=== PATIENT | female | born 1980 | race Hispanic/Latino ===

== ENCOUNTER 2024-04-25 23:00 | Emergency (ER) | payer BC, SELFPAY ==
[2024-04-25 23:06] VITALS: BP 135/72
--- NOTE | 2024-04-26 00:13 | ED.GENMED ---
History of Present Illness
<NIKITA Prescott - Last Filed: 04/26/24 02:39>
General
Chief Complaint: Musculo-Skeletal Complaint
Source: patient
Exam Limitations: none
Time Seen by Provider: 04/26/24 00:02
Nursing documentation reviewed up to this point in time: agreed with
History of Present Illness
History of Present Illness:
Patient is a 43-year-old female who presents to the ER for evaluation of neck pain. 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 She got home this morning started with
pain from her upper back area into her neck. She has taken Tylenol because she is allergic to NSAIDs and has had no relief of symptoms. She reports now she can barely move her neck left to right or up and down. She denies any fevers. She denies
any numbness tingling weakness to upper extremities
Review of Systems
<NIKITA Prescott - Last Filed: 04/26/24 02:39>
Review of Systems
Allergies reviewed?: Yes
All Other Systems: ROS reviewed and negative except as documented in HPI and ROS
Constitutional: Reports no symptoms; Denies fever, fatigue or chills
Respiratory: Reports no symptoms
Cardiac: Reports no symptoms
Musculoskeletal: Reports neck pain and back pain
Skin: Reports no symptoms
Neurological: Reports no symptoms
Psychiatric: Reports no symptoms
Phy Exam
<NIKITA Prescott - Last Filed: 04/26/24 02:39>
General Physical Exam
General Presentation: no apparent distress
General age: appears stated age
General Skin: warm and dry
General Habitus: normal
General Mental: alert
General Hydration: appears well hydrated
Neurological Exam
Neurological Exam: alert, oriented x3, no motor deficits, no sensory deficits and other (Intact sensation to bilateral upper extremities good tube coremaker strength)
Musculoskeletal Exam
Musculoskeletal Exam: other (tender throughout soft tissue muscles of neck and upper trapezius pain with range of motion)
Skin Exam
Skin Exam: normal color and warm/dry
Psychiatric Exam
Psychiatric Exam: normal mood/affect
Course
<NIKITA Prescott - Last Filed: 04/26/24 02:39>
Orders/Labs/Results
Orders:
Orders
04/26/24 00:13
Oxycodone [Roxicodone] 5 mg PO NOW STA
diazePAM [Valium Injection] 5 mg IM NOW STA
04/26/24 00:14
CT Cervical Spine W/o Iv Contr Urgent
Comment:
Reason For Exam: neck pain/injury
04/26/24 02:11
Dexamethasone Sod Phosphate [Decadron] 10 mg IV NOW STA
04/26/24 02:15
Basic Metabolic Panel Urgent
CRP [C-Reactive Protein] Urgent
Complete Blood Count/With Diff Urgent
Sed Rate [Erythrocyte Sed Rate] Urgent
04/26/24 04:00
CT Neck With Iv Contrast Urgent
Comment:
Reason For Exam: Severe posterior neck pain, sore throat, dysphagia
04/26/24 04:02
Acetaminophen 1000MG/100Ml [Ofirmev] 1,000 mg in 100 ml IV ONCE
Acetaminophen IV Indication:: ED Narcotic Naive Pt-ONCE
04/26/24 05:32
Oxycodone [Roxicodone] 5 mg PO NOW STA
Abnormal Lab Results
04/26/24
02:15
WBC 11.9 H 10^3/uL
(4.8-10.8)
Absolute Neuts (auto) 8.3 H 10^3/uL
(1.4-6.5)
Absolute Monos (auto) 1.2 H 10^3/uL
(0.1-0.6)
Lymphocytes % 18.5 L %
(20.5-51.1)
Monocytes % 9.6 H %
(1.7-9.3)
Glucose 120 H mg/dl
(70-99)
C-Reactive Protein 15.50 H mg/L
(0.0-10.00)
04/26/24 02:15
04/26/24 02:15
Vital Signs
Initial and Last Documented VS:
Initial Vital Signs
Temp Pulse Resp BP Pulse Ox
99.5 F 83 18 135/72 96
04/25/24 23:06 04/25/24 23:06 04/25/24 23:06 04/25/24 23:06 04/25/24 23:06
Last Documented Vital Signs
Temp Pulse Resp BP Pulse Ox
99.5 F 79 18 108/55 100
04/25/24 23:06 04/26/24 02:29 04/25/24 23:06 04/26/24 04:00 04/26/24 04:15
<Marly Aguilar, DO - Last Filed: 04/26/24 05:33>
Orders/Labs/Results
Orders:
Orders
04/26/24 00:13
Oxycodone [Roxicodone] 5 mg PO NOW STA
diazePAM [Valium Injection] 5 mg IM NOW STA
04/26/24 00:14
CT Cervical Spine W/o Iv Contr Urgent
Comment:
Reason For Exam: neck pain/injury
04/26/24 02:11
Dexamethasone Sod Phosphate [Decadron] 10 mg IV NOW STA
04/26/24 02:15
Basic Metabolic Panel Urgent
CRP [C-Reactive Protein] Urgent
Complete Blood Count/With Diff Urgent
Sed Rate [Erythrocyte Sed Rate] Urgent
04/26/24 04:00
CT Neck With Iv Contrast Urgent
Comment:
Reason For Exam: Severe posterior neck pain, sore throat, dysphagia
04/26/24 04:02
Acetaminophen 1000MG/100Ml [Ofirmev] 1,000 mg in 100 ml IV ONCE
Acetaminophen IV Indication:: ED Narcotic Naive Pt-ONCE
04/26/24 05:32
Oxycodone [Roxicodone] 5 mg PO NOW STA
Abnormal Lab Results
04/26/24
02:15
WBC 11.9 H 10^3/uL
(4.8-10.8)
Absolute Neuts (auto) 8.3 H 10^3/uL
(1.4-6.5)
Absolute Monos (auto) 1.2 H 10^3/uL
(0.1-0.6)
Lymphocytes % 18.5 L %
(20.5-51.1)
Monocytes % 9.6 H %
(1.7-9.3)
Glucose 120 H mg/dl
(70-99)
C-Reactive Protein 15.50 H mg/L
(0.0-10.00)
04/26/24 02:15
04/26/24 02:15
Vital Signs
Initial and Last Documented VS:
Initial Vital Signs
Temp Pulse Resp BP Pulse Ox
99.5 F 83 18 135/72 96
04/25/24 23:06 04/25/24 23:06 04/25/24 23:06 04/25/24 23:06 04/25/24 23:06
Last Documented Vital Signs
Temp Pulse Resp BP Pulse Ox
99.5 F 79 18 108/55 100
04/25/24 23:06 04/26/24 02:29 04/25/24 23:06 04/26/24 04:00 04/26/24 04:15
<NIKITA Prescott - Last Filed: 04/26/24 02:39>
MDM/Problems Addressed
Differential Diagnosis Includes:
Not limited to muscle strain, torticollis
MDM/Problems Addressed:
As documented patient who works as a transport truck driver for [employer] presented with pain in her neck and upper back. She was opening closing container door though she denies any injury pain started this morning when she got home from work. She
complains of pain with movement of her neck but denies any fever or chills. She denies any actual recent illness or sore throat. Patient presents to the ER tenderness of her upper trapezius and neck patient was given IM Valium and oral narcotic
medicine. She is allergic to NSAIDs. CAT scan was done and does show likely calcific tendinitis of the longus coli and there is a retropharyngeal effusion which is probably secondary to inflammation from calcific tendinitis.. Patient however has
had only minimal relief with Valium and pain medication. Case discussed with Dr. Aguilar who evaluated patient bedside, labs ordered. Patient was given IV Decadron.
0240: full care of patient transferred to Dr. Aguilar
ED Attending Note
<NIKITA Prescott - Last Filed: 04/26/24 02:39>
-
Portions of this chart may have been created with voice recognition software.� Occasional wrong word or��sound alike� substitutions may have occurred due to the inherent limitations of voice recognition software.
<Marly Aguilar DO - Last Filed: 04/26/24 05:33>
ED Attending Note
Patient seen and examined by attending physician: Yes
I performed a history and physical exam of patient and discussed management with resident, I reviewed resident's note and agree with documented findings and plan of care.: Yes
ED Attending Note:
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 She admits to difficulty in doing so initially this
morning but then was able to continue her route, opening and closing her truck doors throughout the day but continued with some posterior neck pain that has progressively worsened throughout the evening, much worse tonight, worse with rotation as
well as flexion and extension of her neck.
No radicular signs or symptoms but she does also note mild sore throat and mild pain with swallowing, complains of a sense of swelling to her anterior neck. She has not had a cough, no difficulty breathing, no fever nor chills, no congestion.
She reports NSAID allergy�generalized swelling and redness related to Naprosyn.
Overall nontoxic in appearance, lying Semi-Cantor's on stretcher, head in neutral position, resistant to move but no meningismus.
Mild to moderate tenderness posterior cervical as well as bilateral superior trapezius musculature with palpable ropiness of bilateral trapezii. Moderately restricted cervical range of motion in all olivier.
Posterior pharynx is clear without edema nor erythema nor exudate. Speech is clear. Handling secretions well. Tongue is midline without edema.
I suspect acute cervical muscle strain, overuse injury.
CT cervical spine shows calcific tendinitis of the longus coli and there is question of a retropharyngeal effusion which may be secondary to inflammation from calcific tendinitis. With complaints of sore throat, must consider retropharyngeal
infectious process.
Will check labs including CBC, inflammatory markers.
Will give an IV dose of Decadron.
Consider CT soft tissue of the neck depending on lab results.
Patient already is asking about time off from work, when she should be able to safely return, how long do we suspect her pain will last, etc.
05:15
CT of the neck shows no additional findings. She is noted to have calcific tendinosis of the longus coli. As patient has allergy to NSAIDs, will initiate a course of prednisone.
Recommend rest, topical heat. Tylenol as needed.
Prompt follow-up with work health provider.
Discharge Plan
Departure
Patient Disposition: Home (Routine Discharge)
Date of Disposition: 04/26/24
Time of Disposition: 05:15
Patient with high blood pressure during this ER visit?: No
Condition: Good
Discharge Problem:
Acute cervical myofascial strain, trapezius myofascitis, calcific tendinitis cervical spine
Instructions: Cervical Sprain ED
Prescriptions:
New
cyclobenzaprine 10 mg tablet
10 mg PO TIDPRN PRN (Reason: muscle spasm) Qty: 20 0RF
prednisone 10 mg Tablet
See Rx Instructions .ROUTE .COMPLEX Qty: 30 0RF
Rx Instructions:
Take By Mouth:
40 mg daily x3 days, 30 mg daily x3 days,
20 mg daily x3 days, 10 mg daily x3 days.
Referrals:
Noel Sellers MD [Family Provider] - Call in 1-3 days for appt
Stand Alone Forms: Return to Work
Interventions
Interventions:
*Risk Screen - Suicide Last Done: 04/25/24 23:06
*General Assessment Last Done: 04/26/24 00:22
*Neglect/Abuse Screening Last Done: 04/26/24 00:22
*ED- Fall Risk Assessment Last Done: 04/26/24 00:22
*ED COVID-19 Vaccine History Last Done: 04/26/24 00:22
ED-Musculoskeletal Assessment Last Done: 04/26/24 00:22
Discharge Date and Time
Print Language: [place]
[2024-04-26 00:22] VITALS: BMI 33.6
[2024-04-26] MEDS: VALIUM INJECTION 5 MG IM (00:25)
[2024-04-26] MEDS: ROXICODONE 5 MG PO ×2 (00:25→05:42)
[2024-04-26 00:27] VITALS: BP 117/58
[2024-04-26 01:00] VITALS: BP 121/64
[2024-04-26 02:14] VITALS: BP 113/55
[2024-04-26] MEDS: DECADRON 10 MG IV (02:15)
[2024-04-26 02:30] LABS: % Basophils 0.3 % (0-2); % Eosinophils 1.3 % (0-6); % Immature Granulocytes 0.3 % (0-0.5); % Lymphocytes 18.5 % (20.5-51.1); % Monocytes 9.6 % (1.7-9.3); Absolute Eosinophils 0.2 10^3/uL (0-0.7); Absolute Lymphocytes 2.2 10^3/uL (1.2-3.4); Absolute Monocytes 1.2 10^3/uL (0.1-0.6); Absolute Neutrophils 8.3 10^3/uL (1.4-6.5); Hematocrit 38.2 % (37.0-47.0); Hemoglobin 13.1 g/dL (12.0-16.0); Mean Corp Hgb Conc. 34.3 g/dL (33.0-37.0); Mean Corpuscular Hgb 30.9 pg (27.0-31.0); Mean Corpuscular Volume 90.1 fL (81.0-99.0); Mean Platelet Volume 8.8 fL (7.4-10.4); Nucleated Red Blood Cells % 0 %; Platelet Count 308 10^3/uL (130-400); Red Blood Cell Count 4.24 10^6/uL (4.20-5.40); Red Cell Dist. Width 13.2 % (11.5-14.5); White Blood Cell Count 11.9 10^3/uL (4.8-10.8)
[2024-04-26 02:43] LABS: Blood Urea Nitrogen 14 mg/dl (7-17); Carbon Dioxide 22 mmol/L (22-30); Chloride 104 mmol/L (98-107); Estimated Creatinine Clearance 120 ml/min; Glucose 120 mg/dl (70-99); Potassium 3.9 mmol/L (3.5-5.1); Sodium 136 mmol/L (135-145); eGFR > 60.00
[2024-04-26 02:56] LABS: Erythrocyte Sed Rate 7 mm/hour (0-20)
[2024-04-26 03:00] VITALS: BP 121/61
[2024-04-26 04:00] VITALS: BP 108/55
[2024-04-26] MEDS: OFIRMEV 100 IV (04:13)
[2024-04-26 05:01] VITALS: BP 122/56
== END 2024-04-26 06:07 | disposition home or self-care (01) ==
LOC: EMR 23:00
PROVIDERS: EMERGENCY PHYSICIAN Emergency Medicine; FAMILY PHYSICIAN Internal Medicine
DX: S16.1XXA Strain of muscle, fascia and tendon at neck level, initial encounter (principal); S29.012A Strain of muscle and tendon of back wall of thorax, initial encounter; X58.XXXA Exposure to other specified factors, initial encounter; Z88.6 Allergy status to analgesic agent
CPT/HCPCS: 99282; 96374; 96375; 96372; 70491; 72125; 80048; 85025; 85652; 86140; Q9967